=== PATIENT | female | born 1970 | race Caucasian/White ===

== ENCOUNTER 2017-07-31 14:56 | Observation (INO) ==
[2017-07-31] MEDS ORDERED: Aspirin 81 MG TAB.CHEW PO ONE (15:03)
--- NOTE | 2017-07-31 15:07 | Emergency Department Note ---
Disposition Clinical Impression: Chest pain Qualifiers: Chest pain type: unspecified Qualified Code(s): R07.9 - Chest pain, unspecified Disposition: Admitted As Inpatient Condition: Good Referrals: Юлия Cummings DO [Primary Care Provider] - Forms: ED Satisfaction Letter Time of Disposition: 16:50 Chest Pain HPI - General Chief Complaint: ED Chest Pain Stated Complaint: chest pain/high bp Time Seen by Provider: 07/31/17 15:02 Source: patient Mode of arrival: ambulatory Limitations: no limitations Vital Signs Reviewed: Yes Nursing Notes Reviewed: Yes - History of Present Illness HPI Narrative: 47-year-old who comes in complaining of chest pain that began a couple hours ago. She describes it as a tightness across her chest had been lasting for about an hour. Cardiac risk factors include borderline diabetes and family history. 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 Constitutional: Denies: fever, chills, weakness, weight change Eyes: Denies: eye pain, eye discharge, vision change ENT ED: Denies: ear pain, throat pain, dental pain, hearing loss, epistaxis, congestion, dysphagia Cardiovascular: Reports: chest pain. Denies: palpitations, dyspnea on exertion , edema, syncope Respiratory: Denies: cough, dyspnea, wheezes, hemoptysis, stridor Gastrointestinal: Denies: abdominal pain, nausea, vomiting, diarrhea, constipation, hematemesis, melena, hematochezia Genitourinary: Denies: dysuria, frequency, hematuria, discharge Musculoskeletal: Denies: back pain, neck pain, arthralgia, myalgia Integumentary: Denies: rash, abrasion, lesions Neurological: Denies: headache, weakness, numbness, paresthesias, confusion, abnormal gait, vertigo Psychiatric: Denies: anxiety, depression, suicidal thoughts, homicidal thoughts , auditory hallucinations, visual hallucinations Endocrine: Denies: fatigue Hematological/Lymphatic: Denies: easy bleeding, easy bruising Allergic/Immunologic: Denies: facial swelling, urticaria Chest Pain PMH - Past Medical History Medical history: Reports: no medical history Psychiatric history: Reports: depression 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 - Social History Smoking Status: Never smoker Alcohol use: Reports: none Drug use: Reports: none Physical Exam - General Limitations: no limitations General appearance: alert - Head Head exam: atraumatic, normocephalic, normal inspection - Eye Eye exam: Present: normal appearance, PERRL, EOMI - ENT ENT exam: normal exam, normal oropharynx, mucous membranes moist - Neck Neck exam: Present: normal inspection, full ROM, trachea midline - Chest Chest inspection: Present: normal inspection, symmetric chest wall rise - Respiratory Respiratory exam: Present: normal lung sounds bilaterally - Cardiovascular Cardiovascular exam: Present: regular rate, normal rhythm, normal heart sounds - Abdominal Exam Abdominal exam: Present: soft, Non-Tender. Absent: tenderness, distention, guarding, rebound, rigidity - Extremities Exam Extremities exam: Present: normal inspection, full ROM. Absent: tenderness, pedal edema - Expanded Lower Extremity Exam Neurovascular/Tendon exam: Absent: motor deficit, sensory deficit, tendon deficit Gait: observed and normal - Back Exam Back exam: Present: normal inspection, full ROM. Absent: tenderness - Neurological Exam Neurological exam: Present: alert, oriented X3 - Psychiatric Psychiatric exam: Present: normal affect, normal mood - Skin Skin exam: Present: warm, dry, intact, normal color Course - Reevaluation(s) Reevaluation #1: 47-year-old female comes in with intermittent chest pain today. Patient does have a couple of risk factors she also felt dizzy earlier. Cardiac workup. Patient will be admitted for evaluation and treatment. Time: 16:50 - Consultations Consultation #1: Discussed with Dr. Villasenor. admit. Time: 16:59 Vital Signs Temperature 98.9 F 07/31/17 14:58 Pulse Rate 80 07/31/17 14:58 Respiratory Rate 20 07/31/17 14:58 Blood Pressure 170/88 07/31/17 14:58 O2 Sat by Pulse Oximetry 98 07/31/17 14:58 Temperature 98.9 F 07/31/17 14:58 Pulse Rate 75 07/31/17 15:26 Respiratory Rate 17 07/31/17 15:26 Blood Pressure 136/76 07/31/17 15:26 O2 Sat by Pulse Oximetry 96 07/31/17 15:26 Oxygen Delivery Oxygen Delivery Room Air Chest Pain - Lab Data Result diagrams: 07/31/17 15:52 07/31/17 15:52 Lab Results 07/31/17 07/31/17 07/31/17 Range/Units 15:52 15:52 15:52 WBC 7.6 (4.3-11.1) K/mcL RBC 4.64 (3.82-4.97) M/mcL Hgb 13.6 (11.5-15.4) g/dL Hct 40.6 (35.3-44.9) % MCV 87.5 (83.0-100.0) fL MCH 29.3 (28.0-33.3) pg MCHC 33.5 (31.6-35.5) g/dL RDW 12.8 (11.5-14.5) % Plt Count 298 (140-400) K/mcL MPV 10.1 (9.4-12.4) fL Immature Gran % 0.3 (0-4) % Seg Neutrophils % 57.5 % Lymphocytes % 28.6 % Monocytes % 10.2 % Eosinophils % 2.6 % Basophils % 0.8 % Neutrophils # 4.4 (1.6-8.9) K/mcL Lymphocytes # 2.2 (0.6-4.6) K/mcL Monocytes # 0.8 (0.0-1.3) K/mcL Eosinophils # 0.2 (0.0-0.6) K/mcL Basophils # 0.1 (0.0-0.2) K/mcL PT 11.5 (9.4-12.1) Seconds INR 1.1 APTT 28.0 (26.0-36.0) Seconds Sodium 142 (136-145) mEq/L Potassium 4.0 (3.5-4.5) mEq/L Chloride 108 (98-109) mEq/L Carbon Dioxide 26 (19-29) mEq/L BUN 12 (7-20) mg/dL Creatinine 0.83 (0.57-1.11) mg/dL Est GFR ( Amer) > 60 (> 60) Est GFR (Non-Af Amer) > 60 (> 60) BUN/Creatinine Ratio 14 (6-26) Glucose 95 (70-99) mg/dL Calculated Osmolality 294 (280-300) Calcium 9.5 (8.6-10.8) mg/dL Troponin I (0-0.03) ng/mL 07/31/17 Range/Units 15:52 WBC (4.3-11.1) K/mcL RBC (3.82-4.97) M/mcL Hgb (11.5-15.4) g/dL Hct (35.3-44.9) % MCV (83.0-100.0) fL MCH (28.0-33.3) pg MCHC (31.6-35.5) g/dL RDW (11.5-14.5) % Plt Count (140-400) K/mcL MPV (9.4-12.4) fL Immature Gran % (0-4) % Seg Neutrophils % % Lymphocytes % % Monocytes % % Eosinophils % % Basophils % % Neutrophils # (1.6-8.9) K/mcL Lymphocytes # (0.6-4.6) K/mcL Monocytes # (0.0-1.3) K/mcL Eosinophils # (0.0-0.6) K/mcL Basophils # (0.0-0.2) K/mcL PT (9.4-12.1) Seconds INR APTT (26.0-36.0) Seconds Sodium (136-145) mEq/L Potassium (3.5-4.5) mEq/L Chloride (98-109) mEq/L Carbon Dioxide (19-29) mEq/L BUN (7-20) mg/dL Creatinine (0.57-1.11) mg/dL Est GFR ( Amer) (> 60) Est GFR (Non-Af Amer) (> 60) BUN/Creatinine Ratio (6-26) Glucose (70-99) mg/dL Calculated Osmolality (280-300) Calcium (8.6-10.8) mg/dL Troponin I 0.00 (0-0.03) ng/mL - EKG Data EKG attestation: Yes I reviewed and interpreted this EKG. EKG shows normal: sinus rhythm Rate: normal Rhythm: NSR Interpretation: no acute changes Heart Score - Score History: Moderately Suspicious EKG: Normal Age: 45-65 Risk Factors: 1-2 risk factors Troponin: Less than normal limit HEART Score Total: 3
[2017-07-31 16:00] LABS: Basophils # 0.1 K/mcL (0.0-0.2); Basophils % 0.8 %; Eosinophils # 0.2 K/mcL (0.0-0.6); Eosinophils % 2.6 %; Hematocrit 40.6 % (35.3-44.9); Hemoglobin 13.6 g/dL (11.5-15.4); Immature Granulocytes % 0.3 % (0-4); Lymphocytes # 2.2 K/mcL (0.6-4.6); Lymphocytes % 28.6 %; Mean Corpuscular HGB Conc 33.5 g/dL (31.6-35.5); Mean Corpuscular Hemoglobin 29.3 pg (28.0-33.3); Mean Corpuscular Volume 87.5 fL (83.0-100.0); Mean Platelet Volume 10.1 fL (9.4-12.4); Monocytes # 0.8 K/mcL (0.0-1.3); Monocytes % 10.2 %; Neutrophils # 4.4 K/mcL (1.6-8.9); Platelet Count 298 K/mcL (140-400); Red Blood Count 4.64 M/mcL (3.82-4.97); Red Cell Distribution Width 12.8 % (11.5-14.5); Segmented Neutrophils % 57.5 %
[2017-07-31 16:09] LABS: INR 1.1; Prothrombin Time 11.5 Seconds (9.4-12.1)
[2017-07-31 16:13] LABS: BUN/Creatinine Ratio 14 (6-26); Blood Urea Nitrogen 12 mg/dL (7-20); Calcium 9.5 mg/dL (8.6-10.8); Carbon Dioxide 26 mEq/L (19-29); Chloride 108 mEq/L (98-109); Glucose 95 mg/dL (70-99); Osmolality,Calculated 294 (280-300); Sodium 142 mEq/L (136-145); eGFR For African Americans > 60 (> 60); eGFR For Non-African Americans > 60 (> 60)
[2017-07-31] MEDS ORDERED: Naloxone 0.4 MG/ML INJ IVP PRN (17:45)
--- NOTE | 2017-07-31 18:16 | Internal Med History&Physical ---
Date of Encounter: 07/31/17 Time of Encounter: 18:00 Assessment and Plan (1) Chest pain Current visit: Yes Status: Acute Patient with precordial chest pain. Atypical but crescendo pattern. We will place an hospital for observation. Trend troponins. If troponins are negative , plan for cardiac stress test tomorrow. Check lipid profile and A1c. Does have family history of cardiac disease. Qualifiers: Chest pain type: precordial pain Qualified Code(s): R07.2 - Precordial pain (2) Elevated BP without diagnosis of hypertension Current visit: Yes Status: Acute Patient had elevated blood pressure earlier this afternoon during her episode of chest pain. Her blood pressure could be related to the pain. Will monitor blood pressure closely. If she does have recordings of persistent elevation in blood pressure, she will be diagnosed with hypertension and started on treatment for it. Internal Medicine - H&P: HPI Chief complaint: Chest pain Admitted From: Emergency Dept Plans for Post Hospital Care: Home History of present illness: Ms. 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 It was sudden onset severe sharp chest pain in the central part of the chest that had a crescendo pattern in increase in intensity. She was also found to have elevated blood pressure in the 180s systolic by the school nurse. She was sent to the ER for evaluation. She received aspirin and an antacid which seemed to relieve the pain. She denies shortness of breath associated with it. She has never had similar kind of chest pain before. She does get indigestion once in a while but it usually results in pain in her back. Denies any palpitations. Past Med Surg Social Fam HX - Past Medical History Attestation: Yes The following information was validated with the patient. Source: patient Medical history: no medical history Psychiatric history: anxiety, depression - Social History Smoking Status: Never smoker Smokeless Tobacco Status: No Alcohol use: none Drug use: none Internal Medicine - H&P: Meds Ergocalciferol (VITAMIN D2) [Vitamin D] 400 unit PO DAILY 07/31/17 [History] Escitalopram [Lexapro] 10 mg PO Q48H 07/31/17 [History] Escitalopram [Lexapro] 20 mg PO Q48H 07/31/17 [History] Norethindrone Acetate [Norethindrone AC (Lupaneta)] 5 mg PO DAILY 07/31/17 [ History] Saccharomyces Boulardii [Probiotic] 250 mg PO DAILY 07/31/17 [History] Solifenacin Succinate [Vesicare] 5 mg PO DAILY 07/31/17 [History] 3 Allergy/AdvReac Type Severity Reaction Status Date / Time No Known Allergies Allergy Verified 07/31/17 14:58 All Systems PM: A 10-system review of systems was performed and is negative for pertinent findings except as documented above in the HPI. - Constitutional Constitutional: no chills, no fever(s), no night sweats - EENT Eyes: no change in vision, no discharge, no pain, no photophobia Ears: no ear discharge, no ear pain, no tinnitus Nose, mouth and throat: no dysphagia, no nasal discharge, no neck pain, no sore throat - Cardiovascular Cardiovascular ROS IM: chest pain, no diaphoresis, no dyspnea, no lightheadedness, no palpitations, no syncope - Respiratory Respiratory: no cough, no dyspnea, no wheezing, no excessive phlegm production - Gastrointestinal Gastrointestinal: no abdominal pain, no diarrhea, no hematemesis, no hematochezia, no melena, no nausea, no vomiting - Genitourinary Genitourinary: no change in urinary stream, no dysuria, no flank pain, no hematuria - Musculoskeletal Musculoskeletal ROS IM: no numbness, no tingling - Integumentary Integumentary IM: no rash, no unusual bruising - Neurological Neurological ROS: no confusion, no convulsions, no focal weakness, no numbness, no tingling, no tremor(s) - Hematologic/Lymphatic Hematologic/Lymphatic: no easy bruising - Constitutional Vitals: Temp Pulse Resp BP Pulse Ox 98.9 F 62 11 133/79 98 07/31/17 14:58 07/31/17 16:55 07/31/17 16:55 07/31/17 16:55 07/31/17 16:55 General appearance: Present: cooperative, A&O X 3, answers questions appropriately - Neck Neck exam general surgery: Present: supple, trachea midline. Absent: lymphadenopathy - Respiratory Respiratory exam: Present: CTAB. Absent: accessory muscle use, rales, rhonchi, wheezes - Cardiovascular Cardiovascular exam: Present: RRR, +S1, +S2. Absent: diastolic murmur, gallop, rubs, systolic murmur - GI/Abdominal GI/Abdominal exam: Present: normal bowel sounds, soft, no peritoneal signs. Absent: distended, tenderness - Extremities Exam Extremities exam: Present: warm, radial pulses palpable and symmetrical. Absent : calf tenderness, cyanotic, pedal edema - Neurological Exam Neurological exam: Present: alert, oriented X3, no focal deficits. Absent: facial droop, speech deficit Internal Med - H&P Results - Labs CBC & Chem 7: 07/31/17 15:52 07/31/17 15:52 Labs: Short CBC 07/31/17 Range/Units 15:52 WBC 7.6 (4.3-11.1) K/mcL Hgb 13.6 (11.5-15.4) g/dL Hct 40.6 (35.3-44.9) % Plt Count 298 (140-400) K/mcL Neutrophils # 4.4 (1.6-8.9) K/mcL BMP 07/31/17 15:52 Sodium 142 Potassium 4.0 Chloride 108 Carbon Dioxide 26 BUN 12 Creatinine 0.83 Glucose 95 Calcium 9.5 Cardiac Enzymes 07/31/17 Range/Units 15:52 Troponin I 0.00 (0-0.03) ng/mL - Impressions ITS Impressions Chest X-Ray 07/31/17 15:03 IMPRESSION: 1. No active pulmonary disease. D/ / Riky Wagner MD / Riky Wagner MD Interpreting Provider: Riky Wagner MD
[2017-08-01 05:12] LABS: Hemoglobin A1C 4.9 %
[2017-08-01] MEDS ORDERED: Regadenoson 0.4 MG/5 ML SYRINGE IVP ONE (06:10)
[2017-08-01 11:43] VITALS: BP 147/71
--- NOTE | 2017-08-01 12:58 | Discharge Summary ---
Date of Encounter: 08/01/17 Time of Encounter: 12:57 - Discharge Diagnosis (1) Chest pain Priority: Primary Status: Acute Qualifiers: Chest pain type: precordial pain Qualified Code(s): R07.2 - Precordial pain (2) Essential hypertension Priority: Secondary Status: Chronic - Discharge Medications Prescriptions: Lisinopril 2.5 mg PO DAILY #30 tablet Home Medications: Ergocalciferol (VITAMIN D2) [Vitamin D] 400 unit PO DAILY 07/31/17 [History] Escitalopram [Lexapro] 10 mg PO Q48H 07/31/17 [History] Escitalopram [Lexapro] 20 mg PO Q48H 07/31/17 [History] Norethindrone Acetate [Norethindrone AC (Lupaneta)] 5 mg PO DAILY 07/31/17 [ History] Saccharomyces Boulardii [Probiotic] 250 mg PO DAILY 07/31/17 [History] Solifenacin Succinate [Vesicare] 5 mg PO DAILY 07/31/17 [History] Lisinopril 2.5 mg PO DAILY #30 tablet 08/01/17 [Rx] Allergies/Adverse Reactions: 3 Allergy/AdvReac Type Severity Reaction Status Date / Time No Known Allergies Allergy Verified 07/31/17 14:58 Date of admission: 07/31/17 19:20 Primary care physician: Mike Neil Discharging clinician: Kellie Villasenor Anticipated date of discharge: 08/01/17 - Patient Status Disposition: Home, Self-Care Condition: Good Functional capacity at discharge: independent ambulation Overall status at discharge: patient is back to baseline - Discharge Instructions Instructions: Chest Pain (DC), Chronic Hypertension (DC) Follow Up With: Юлия Cummings DO [Primary Care Provider] - - Diet and Activity Activity: increase activity as tolerated Diet: low fat, low cholesterol, low salt diet Hospital course: Ms. Lai is a 47 year old female patient who was observed here after presenting to the ER with complaints of chest pain. She had a crescendo pattern of chest pain on presentation and so she was monitored and her troponins were trended. Her troponins were negative and then patient underwent cardiac stress test today. Stress test did not show any signs of ischemia. She is no longer having chest this time and is clinically stable for discharge. She does have elevated blood pressure and has now been newly diagnosed with essential hypertension. She will be placed on low-dose lisinopril to help treat this. She is also advised exercise and diet and lifestyle modifications to help treat hypertension. She will be discharged home today. - Time Spent with Patient Total time spent providing and/or coordinating discharge services: Less than 30 minutes (25 min) - Constitutional Vitals: Temp Pulse Resp BP Pulse Ox 98.5 F 79 16 147/71 97 08/01/17 11:41 08/01/17 11:41 08/01/17 11:41 08/01/17 11:41 08/01/17 11:41 General appearance: Present: cooperative, A&O X 3, answers questions appropriately - Neck Neck exam general surgery: Present: supple, trachea midline. Absent: lymphadenopathy - Respiratory Respiratory exam: Present: CTAB. Absent: accessory muscle use, rales, rhonchi, wheezes - Cardiovascular Cardiovascular exam: Present: RRR, +S1, +S2. Absent: diastolic murmur, gallop, rubs, systolic murmur - GI/Abdominal GI/Abdominal exam: Present: normal bowel sounds, soft, no peritoneal signs. Absent: distended, tenderness - Extremities Exam Extremities exam: Present: warm, radial pulses palpable and symmetrical. Absent : calf tenderness, cyanotic, pedal edema - Neurological Exam Neurological exam: Present: alert, oriented X3, no focal deficits. Absent: facial droop, speech deficit - Skin Skin exam: Present: dry, intact
--- NOTE | 2017-08-01 16:01 | Electrocardiograph Report ---
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
== END 2017-08-01 13:55 | disposition home or self-care (01) ==
LOC: 3BNU 14:56 → EMEROO 14:56 → SUATTDRO 19:20 → 3BNU 20:04
PROVIDERS: ADMIT Internal Medicine; ATTEND Internal Medicine